=== PATIENT | male | born 1935 | race Caucasian/White ===

== ENCOUNTER 2023-11-30 13:08 | Inpatient (IN) | payer OTHER ==
[~2023-11-30] VITALS: Ht 185.4 cm; Wt 76.0 kg
[~2023-11-30 13:08] MED LIST: ATE50T GT; BRIM0.159 OP; COSO10 OP; SIMV10TA20 PO; TAMS-35 PO; TRAV0.00 OP
[2023-11-30 14:36] LABS: Basophils # (auto) 0 10 ^3/uL (0-0.2); Basophils % (auto) 0.6 % (0.0-2.0); Eosinophils # (auto) 0.3 10 ^3/uL (0-0.8); Eosinophils % (auto) 5.9 % (0.0-7.0); Hematocrit 51.2 % (41.0-53.0); Hemoglobin 17.3 g/dL (13.5-17.5); Lymphocytes # (auto) 1.1 10 ^3/uL (0.4-5.4); Lymphocytes % (auto) 24.1 % (10.0-50.0); Mean Corpuscular Hemoglobin 31.9 pg (28.0-32.0); Mean Corpuscular Hgb Conc. 33.7 g/dL (32.0-36.0); Mean Corpuscular Volume 94.7 fL (80.0-100.0); Monocytes # (auto) 0.6 10 ^3/uL (0-1.3); Monocytes % (auto) 13.3 % (0.0-12.0); Neutrophils # (auto) 2.7 10 ^3/uL (1.6-8.6); Neutrophils % (auto) 56.1 % (37.0-80.0); Nucleated Red Blood Cells % 0.6 %; Red Blood Cells 5.41 10^6/uL (4.5-5.90); Red Cell Distribution Width 13.5 % (11.8-14.3); White Blood Cell 4.8 10^3/uL (4.4-10.8)
[2023-11-30 14:44] LABS: Chloride 108 mmol/L (98-107); Potassium 4.4 mmol/L (3.5-5.1); Sodium 137 mmol/L (136-145)
[2023-11-30 14:45] LABS: Anion Gap 8 (5-15); Carbon Dioxide 21 mmol/L (20-30)
[2023-11-30 14:46] LABS: Calcium 9.5 mg/dL (8.7-10.4)
[2023-11-30 14:50] LABS: BUN/Creatinine Ratio 13.5 (10.0-20.0); Blood Urea Nitrogen 18 mg/dL (9-23); Glucose 110 mg/dL (74-106)
[2023-11-30 16:03] LABS: Urine Bacteria None Seen /hpf (None Seen)
[2023-11-30 16:23] LABS: Urine Amorphous Crystal FEW /hpf (None Seen); Urine Blood Negative /uL (Negative); Urine Clarity Clear (Clear); Urine Color Light-Yellow (Yellow); Urine Protein, UAD Negative (Negative); Urine Specific Gravity 1.017 (1.001-1.035); Urine Urobilinogen Normal (Negative); Urine WBC 3 /hpf (0 - 3); Urine pH 5.5 (5.0-9.0)
[2023-11-30] MEDS: SODIUM CHLORIDE 0.9% 1,000 ML IV ONE (16:50)
[2023-11-30] MEDS ORDERED: NITROGLYCERIN 0.4 MG SL TAB SL PRN (19:00)
[2023-11-30] MEDS ORDERED: MORPHINE SULFATE INJ 2 MG/ml SYRG IV PRN (19:00)
[2023-11-30] MEDS ORDERED: ACETAMINOPHEN 325 MG TAB PO PRN (19:00)
[2023-11-30 19:27] LABS: Triglycerides 293 mg/dL (< 150)
[2023-11-30 19:28] LABS: LDL Cholesterol 58 mg/dL (< 100)
[2023-11-30 19:29] LABS: Cholesterol 120 mg/dL (< 200); HDL Cholesterol 38 mg/dL (40-59)
[2023-11-30 19:30] VITALS: PULSE 59; RESP 14; O2SAT 96
[2023-11-30] MEDS: EYE OP SCH ×2 (22:00)
[2023-11-30] MEDS: DORZOLAM-TIMOLOL(2/0.5%) OPTH(EYE) SOLN 10ML OP SCH (22:00)
[2023-11-30] MEDS: BRIMONIDINE TARTRATE 0.15% OP SCH (22:00)
[2023-11-30] MEDS: TRAVOPROST 0.004% OP SCH (22:00)
[2023-12-01 06:16] LABS: Basophils # (auto) 0 10 ^3/uL (0-0.2); Basophils % (auto) 0.5 % (0.0-2.0); Eosinophils # (auto) 0.2 10 ^3/uL (0-0.8); Monocytes # (auto) 0.6 10 ^3/uL (0-1.3); Neutrophils # (auto) 2.6 10 ^3/uL (1.6-8.6); Nucleated Red Blood Cells % 0.1 %; Red Cell Distribution Width 13.6 % (11.8-14.3)
[2023-12-01 06:19] LABS: Eosinophils % (auto) 4.9 % (0.0-7.0); Hematocrit 55.7 % (41.0-53.0); Hemoglobin 18.9 g/dL (13.5-17.5); Lymphocytes # (auto) 1.2 10 ^3/uL (0.4-5.4); Lymphocytes % (auto) 26.2 % (10.0-50.0); Mean Corpuscular Hemoglobin 32.4 pg (28.0-32.0); Mean Corpuscular Volume 95.5 fL (80.0-100.0); Monocytes % (auto) 12.1 % (0.0-12.0); Neutrophils % (auto) 56.3 % (37.0-80.0); Red Blood Cells 5.84 10^6/uL (4.5-5.90); White Blood Cell 4.7 10^3/uL (4.4-10.8)
[2023-12-01 06:50] LABS: Alanine Aminotransferase 12 U/L (7-40); Albumin 4.4 g/dL (3.2-4.8); Alkaline Phosphatase 74 U/L (46-116); Anion Gap 8 (5-15); Aspartate Aminotransferase 26 U/L (13-40); BUN/Creatinine Ratio 11.3 (10.0-20.0); Blood Urea Nitrogen 14 mg/dL (9-23); Calcium 9.6 mg/dL (8.7-10.4); Carbon Dioxide 23 mmol/L (20-30); Chloride 108 mmol/L (98-107); Glucose 92 mg/dL (74-106); Potassium 4.7 mmol/L (3.5-5.1); Sodium 139 mmol/L (136-145)
[2023-12-01 06:51] LABS: Bilirubin, Total 0.8 mg/dL (0.2-1.0); Total Protein 7.4 g/dL (5.7-8.2)
[2023-12-01 11:27] VITALS: PULSE 59; RESP 12; O2SAT 92
[2023-12-01] MEDS: ENOXAPARIN SOD 40 MG/0.4 ML SYRINGE SC SCH (11:40)
[2023-12-01 17:10] VITALS: PULSE 56; RESP 18; O2SAT 95
[2023-12-01] MEDS: TAMSULOSIN HYDROCHLORIDE 0.4 MG CAP PO SCH (18:31)
[2023-12-01 20:00] VITALS: PULSE 56
[2023-12-01 21:00] VITALS: BP 119/54; PULSE 56; RESP 20; TEMP 97.7; O2SAT 95
[2023-12-02 01:00] VITALS: BP 137/64; PULSE 63; RESP 20; TEMP 97.9; O2SAT 96
[2023-12-02 05:00] VITALS: BP 129/58; PULSE 61; RESP 20; TEMP 98.1; O2SAT 95
[2023-12-02 08:00] VITALS: PULSE 79; PULSE 92; RESP 19; O2SAT 96
[2023-12-02 09:20] VITALS: BP 132/64; PULSE 92; RESP 19; TEMP 97.9; O2SAT 96
[2023-12-02 20:00] VITALS: PULSE 62; RESP 19; O2SAT 96
[2023-12-02 21:00] VITALS: BP 114/67; PULSE 87; RESP 16; TEMP 98.9; O2SAT 96
[2023-12-03] VITALS (8 sets, daily range): BP systolic 127–149; BP diastolic 64–91; PULSE 62–85; RESP 1–18; TEMP 97.7–98.6; O2SAT 92–98
[2023-12-03] MEDS ORDERED: hydrALAZINE HCL 10 MG TAB PO ONE (13:30)
== END 2023-12-03 18:19 | disposition home or self-care (01) | DRG 948 ==
LOC: ER 13:08 → EDBD 13:08 → TELE 18:48 → TELE-CENTR 12-01 16:27
PROVIDERS: ADMIT Nurse Practitioner Family; ATTEND Internal Medicine Geriatric Medicine
DX: R41.82 Altered mental status, unspecified (principal); I48.20 Chronic atrial fibrillation, unspecified; I50.32 Chronic diastolic (congestive) heart failure; R53.1 Weakness; F02.80 Dementia in other diseases classified elsewhere, unspecified severity, without behavioral disturbance, psychotic disturbance, mood disturbance, and anxiety; G30.9 Alzheimer's disease, unspecified; I11.0 Hypertensive heart disease with heart failure; Z95.1 Presence of aortocoronary bypass graft
CPT/HCPCS: 36415; 70450; 70551; 71045; 80048; 80053; 80061; 81001; 82607; 83880; 84443; 84484; 85025; 87081; 93005; 93306; 93886; 96360; 97116; 97163; 97530; G0378